=== PATIENT | male | born 1955 | race Caucasian/White ===

== ENCOUNTER → 2023-09-13 09:12 | Outpatient (BNVA) | payer MEDICARE, OTHER, SELFPAY | PROVIDERS: PCP Family Medicine; Visit Provider Family Medicine | DX: Z00.00 Encounter for general adult medical examination without abnormal findings (principal); G47.00 Insomnia, unspecified; G47.33 Obstructive sleep apnea (adult) (pediatric); R53.83 Other fatigue; E11.9 Type 2 diabetes mellitus without complications | CPT/HCPCS: 80053; 80061; 82607; 84443; 85025 ==

== ENCOUNTER → 2023-09-18 10:09 | Outpatient (BNVA) | payer MEDICARE, SELFPAY | PROVIDERS: PCP Family Medicine; Referring Provider Family Medicine; Visit Provider Surgery | DX: Z12.11 Encounter for screening for malignant neoplasm of colon (principal); Z86.010 Personal history of colon polyps; Z80.0 Family history of malignant neoplasm of digestive organs | CPT/HCPCS: 99024; 99204 ==

== ENCOUNTER 2023-11-15 07:22 | Day surgery (SDC) | payer MEDICARE, OTHER, SELFPAY ==
[2023-11-15 07:32] VITALS: BP 165/100; PULSE 72; RESP 16; TEMP 36.3; O2SAT 96
[2023-11-15 07:35] VITALS: BMI 41.3
[2023-11-15] MEDS: sodium chloride 0.9% 1,000 ML 30 ML IV (07:43)
--- NOTE | 2023-11-15 08:15 | P.ANESASSM_ITS ---
Pre-Anesthetic Assessment Height/Weight: Height 1.83 m Weight 138.346 kg Temp Pulse Resp BP Pulse Ox O2 Del Method 97.4 F L 72 16 165/100 96 Room Air 11/15/23 07:32 11/15/23 07:32 11/15/23 07:32 11/15/23 07:32 11/15/23 07:32 11/15/23 07:32 Preop Diagnosis: screening Operation Date: 11/15/23 08:30 Proposed Procedures p Colonoscopy [id number], G0121, Z12.11(Not Applicable) - Judd Valadez DO Familial anesthetic complications: none Was Beta Dorys taken within 24 hours: N/A Was Clonidine taken within 24 hours: N/A Last intake: Intake Last Liquid Date 11/15/23 Last Liquid Time 06:30 Last Solid Date 11/13/23 Last Solid Time 21:00 Social No alcohol and No tobacco Exam alert, oriented x 3, clear to auscultation bilaterally and regular rate & rhythm Airway Submandibular: within normal limits Cervical ROM: within normal limits Mallampati: Class III Dentition: full History/ROS No significant history except as noted and No significant complaints Pulmonary Sleep Apnea CPAP CV/HEM None reported Kidney Stones Hepatic None reported GI None reported Metabolic Morbid Obesity [facility] [place] None reported Neuropsych Depression Anesthetic Plan ASA status: 2 Anesthesia: MAC Risk of > 500 ml blood loss (7ml/kg in children): No Medications/Allergies Home Medications Medication Instructions Recorded Confirmed Last Taken Type trazodone 150 mg tablet 225 mg (1.5 x 150 mg) PO DAILY #45 11/02/23 11/15/23 11/12/23 Rx tabs Allergies Allergy/AdvReac Type Severity Reaction Status Date / Time No Known Allergies Allergy Verified 11/13/23 10:48 Current Medications Generic Name Dose Route Start Last Admin Trade Name Freq PRN Reason Stop Dose Admin Sodium Chloride 1,000 mls @ 30 mls/hr 11/15/23 07:30 11/15/23 07:43 Sodium Chloride 0.9% IV 11/16/23 07:29 30 mls/hr .Q24H NADEEM Administration PFSH Anesthesia Medical History Family history of colon cancer History of colon polyps SADA on CPAP Insomnia Family History Grandfather Colon cancer Social History Smoking and tobacco/nicotine status: unknown if used tobacco/nicotine Data Anesthesia Cardiac Studies: No Data to Display
--- NOTE | 2023-11-15 08:46 | PM.HP ---
Providers/Chief Complaint Primary Care Provider: Shantanu Garcia MD Chief Complaint: Z12.11 History of Present Illness José Marin is a 68 year old male Review of Systems General: Reports: 10 or more systems reviewed and unremarkable except in HPI and below Medications/Allergies Home Medications Medication Instructions Recorded Confirmed Last Taken Type trazodone 150 mg tablet 225 mg (1.5 x 150 mg) PO DAILY #45 11/02/23 11/15/23 11/12/23 Rx tabs Allergies Allergy/AdvReac Type Severity Reaction Status Date / Time No Known Allergies Allergy Verified 11/13/23 10:48 PFSH Acute PFSH: Medical History Family history of colon cancer History of colon polyps SADA on CPAP Insomnia Family History Grandfather Colon cancer Social History Smoking and tobacco/nicotine status: unknown if used tobacco/nicotine Vitals/I&O/Wt Last Vital Signs Temp 97.4 F L 11/15/23 07:32 Pulse 72 11/15/23 07:32 Resp 16 11/15/23 07:32 BP 165/100 11/15/23 07:32 Pulse Ox 96 11/15/23 07:32 O2 Del Method Room Air 11/15/23 07:32 Weight last 48 hrs Weight 305 lb A&P Assessment and plan (1) History of colon polyps: (2) Family history of colon cancer: Plan Colonoscopy Attestations Medical Necessity Statement*: Home Coding Level of Care Code Acute Code for Chg Fwd Diagnoses History of colon polyps Z86.010 Family history of colon cancer Z80.0
[2023-11-15 08:59] VITALS: BP 110/64; PULSE 63; RESP 18; TEMP 36.3; O2SAT 93
--- NOTE | 2023-11-15 09:01 | ANE.PACU2 ---
Inpatient post-anesthesia follow up: Airway intact: Yes Vital signs: Temperature 97.4 F Pulse Rate 72 Respiratory Rate 16 Blood Pressure 165/100 Pulse Oximetry 96 Oxygen Delivery Me thod Room Air Oxygen Flow Rate Fraction of Inspir ed Oxygen Hydration adequate: Yes Nausea and vomiting: No Pain level: 1 Mental status: Baseline
[2023-11-15 09:10] VITALS: BP 125/77; PULSE 95; RESP 16; O2SAT 96
== END 2023-11-15 09:29 | disposition home or self-care (01) ==
PROVIDERS: PCP Family Medicine; Visit Provider Surgery
PROC: 0DJD8ZZ Inspection of Lower Intestinal Tract, Via Natural or Artificial Opening Endoscopic (ICD-10-PCS; CPT 45378; principal; 2023-11-15 08:30)
DX: Z12.11 Encounter for screening for malignant neoplasm of colon (principal); Z86.010 Personal history of colon polyps; Z80.0 Family history of malignant neoplasm of digestive organs; G47.33 Obstructive sleep apnea (adult) (pediatric); K64.8 Other hemorrhoids; E66.01 Morbid (severe) obesity due to excess calories; Z68.41 Body mass index [BMI] 40.0-44.9, adult; F32.A Depression, unspecified
CPT/HCPCS: G0121; J2704; J7030

== ENCOUNTER → 2023-11-27 13:10 | Outpatient (BNVA) | payer MEDICARE, OTHER, SELFPAY | PROVIDERS: PCP Family Medicine; Visit Provider Surgery | DX: Z09 Encounter for follow-up examination after completed treatment for conditions other than malignant neoplasm (principal); K64.8 Other hemorrhoids | CPT/HCPCS: 99212 ==